=== PATIENT | female | born 1985 | race American Indian/Alaskan Native ===

== ENCOUNTER 2017-09-10 20:12 | Emergency (ER) | payer OTHER, MEDICAID ==
[2017-09-10] MEDS ORDERED: MOTRIN PO ONE (20:59)
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
[2017-09-11 00:52] VITALS: BP 118/59
--- NOTE | 2017-09-12 22:24 | XRay Report ---
FINAL REPORT PROCEDURE: XR SPINE LUMBOSACRAL 2-3V TECHNIQUE: Lumbar spine radiographs, including AP, lateral, and lumbosacral spot views. CPT 07969 HISTORY: lower back pain COMPARISON: No prior studies are available for comparison. FINDINGS: There is slight scoliosis of the lumbar spine with convexity to the left. There is normal lumbar lordosis. There are no fractures or malalignments. The disc spaces are normal. The facet joints are intact. Soft tissues are unremarkable. IMPRESSION: There is no acute bony abnormality..
--- NOTE | 2017-09-12 22:26 | XRay Report ---
FINAL REPORT PROCEDURE: XR SPINE CERVICAL 2-3V TECHNIQUE: Cervical spine radiographs, AP, lateral, and open-mouth odontoid views. CPT 87490 HISTORY: Neck pain COMPARISON: No prior studies are available for comparison. FINDINGS: Prevertebral soft tissues: Normal . Alignment: Normal . Vertebral body heights/Disk spaces: Normal . Fracture(s): None . Facets: Normal . Bone mineralization: Normal . IMPRESSION: Normal Examination
--- NOTE | 2017-09-13 00:09 | XRay Report ---
FINAL REPORT PROCEDURE: XR KNEE BILAT 1-2V TECHNIQUE: Bilateral knee radiographs, standing AP view. HISTORY: Bilateral Knee pain COMPARISON: No prior studies are available for comparison. FINDINGS: Fracture (s) and/or Dislocation(s): None . Joint space(s): Normal. Soft tissues: Normal. Bone mineralization: Normal. Foreign bodies: None. IMPRESSION: Normal Examination.
== END 2017-09-11 00:53 | disposition home or self-care (01) ==
LOC: ED 20:12
DX: M54.9 Dorsalgia, unspecified (principal); M54.2 Cervicalgia; F17.200 Nicotine dependence, unspecified, uncomplicated
CPT/HCPCS: 72040; 72100; 99283

== ENCOUNTER 2021-04-17 03:35 | Emergency (ER) | payer MEDICAID ==
--- NOTE | 2021-04-17 04:43 | Emergency Department Report ---
ED General Adult HPI - General Chief complaint: Wound/Laceration Stated complaint: LECERATION TO LEFT KNEE Time Seen by Provider: 04/17/21 04:28 Source: patient Mode of arrival: Ambulatory Limitations: No Limitations - History of Present Illness Initial comments: Patient 35-year-old female who presents with left anterior knee laceration status post slip and fall at home. Patient is amatory to baseline. Patient arrived via POV. States incident happened about 6 PM. There is no active bleeding, last tetanus is unknown. Pain described at 4/10 aching. - Related Data Previous Rx's Medication Instructions Recorded Last Taken Type Baclofen [Lioresal] 10 mg PO TID #12 tab 09/10/17 Unknown Rx Ibuprofen [Motrin 600 MG tab] 600 mg PO Q8H PRN #30 tablet 09/10/17 Unknown Rx Ibuprofen [Motrin 800 MG tab] 800 mg PO Q8HR PRN #30 tablet 04/17/21 Unknown Rx Allergies Allergy/AdvReac Type Severity Reaction Status Date / Time No Known Allergies Allergy Unverified 09/10/17 20:58 ED Review of Systems ROS: Stated complaint: LECERATION TO LEFT KNEE Other details as noted in HPI Constitutional: denies: chills, fever Eyes: denies: eye pain, eye discharge, vision change ENT: denies: ear pain, throat pain Respiratory: denies: cough, shortness of breath, wheezing Cardiovascular: denies: chest pain, palpitations Endocrine: no symptoms reported Gastrointestinal: denies: abdominal pain, nausea, diarrhea Genitourinary: denies: urgency, dysuria, discharge Musculoskeletal: other (Laceration left anterior knee). denies: back pain, joint swelling, arthralgia Skin: other (Laceration as above). denies: rash, lesions Neurological: denies: headache, weakness, paresthesias, vertigo Psychiatric: denies: anxiety, depression Hematological/Lymphatic: denies: easy bleeding, easy bruising ED Past Medical Hx - Past Medical History Previous Medical History?: No - Surgical History Past Surgical History?: Yes Additional Surgical History: Tubal Ligation - Social History Smoking Status: Current Every Day Smoker Substance Use Type: None - Medications Home Medications: Home Medications Medication Instructions Recorded Confirmed Last Taken Type Baclofen [Lioresal] 10 mg PO TID #12 tab 09/10/17 Unknown Rx Ibuprofen [Motrin 600 MG tab] 600 mg PO Q8H PRN #30 tablet 09/10/17 Unknown Rx Ibuprofen [Motrin 800 MG tab] 800 mg PO Q8HR PRN #30 tablet 04/17/21 Unknown Rx ED Physical Exam - General Limitations: No Limitations General appearance: alert, in no apparent distress - Head Head exam: Present: atraumatic, normocephalic - Eye Eye exam: Present: normal appearance, EOMI Pupils: Present: normal accommodation - ENT ENT exam: Present: mucous membranes moist - Neck Neck exam: Present: normal inspection, full ROM. Absent: tenderness - Respiratory Respiratory exam: Present: normal lung sounds bilaterally. Absent: respiratory distress, wheezes, stridor - Cardiovascular Cardiovascular Exam: Present: regular rate, normal rhythm, normal heart sounds. Absent: systolic murmur, diastolic murmur, rubs, gallop - GI/Abdominal GI/Abdominal exam: Present: soft, normal bowel sounds. Absent: distended, tenderness - Rectal Rectal exam: Present: deferred - Extremities Exam Extremities exam: Present: full ROM. Absent: joint swelling - Expanded Lower Extremity Exam Left Knee exam: Present: tenderness, laceration (Chronic anterior knee no nerve muscle or tendon damage, range of motion remains intact, strength is five five. Joint is stable), full knee extension. Absent: pain w/ pronation/supination, posterior draw sign, pain/laxity with valgus, pain/laxity with varus Lower Leg exam: Present: full ROM. Absent: tenderness Foot/Toe exam: Present: full ROM. Absent: tenderness Neuro vascular tendon exam: Absent: pulse deficit, motor deficit, sensory deficit, tendon deficit Gait: Positive: observed and normal - Back Exam Back exam: Present: normal inspection, full ROM. Absent: vertebral tenderness - Neurological Exam Neurological exam: Present: alert, oriented X3, CN II-XII intact, normal gait, reflexes normal. Absent: motor sensory deficit - Expanded Neurological Exam Expanded Patient oriented to: Present: person, place, time Speech: Present: fluid speech Motor strength exam: RUE: 5, LUE: 5, RLE: 5, LLE: 5 Best Eye Response (Parker): (4) open spontaneously Best Motor Response (Parker): (6) obeys commands Best Verbal Response (Marita): (5) oriented Parker Total: 15 - Psychiatric Psychiatric exam: Present: normal affect, normal mood - Skin Skin exam: Present: warm, dry, normal color, other (Laceration as above). Absent: rash ED Course Vital Signs 04/17/21 03:55 Temperature 98.2 F Pulse Rate 98 H Respiratory 16 Rate Blood Pressure 133/83 O2 Sat by Pulse 98 Oximetry - Laceration /Wound Repair Left Anterior Knee Wound Location: lower extremity Wound Length (cm): 2 Wound's Depth, Shape: superficial Wound Explored: no foreign body removed Irrigated w/ Saline (ccs): 60 Betadine Prep?: Yes Anesthesia: 1% Lidocaine Volume Anesthetic (ccs): 2 Wound Debrided: minimal Wound Repaired With: sutures, Dermabond Suture Size/Type: 3:0, proline Number of Sutures: 3 Layer Closure?: No Sterile Dressing Applied?: Yes Progress: Left anterior knee 1 inch laceration, cleaned with Betadine solution, anesthesia 1% lidocaine plain x2 cc, anesthesia is achieved. Wound irrigated with 60 cc sterile saline, closed with 3-0 Prolene times 3 sutures and Dermabond. Dressing applied range of motion remains intact there is no nerve muscle or tendon damage. Given post care instructions verbalized understanding of same. Bleeding is controlled patient tolerated procedure with minimal distress. ED Medical Decision Making - Medical Decision Making Left anterior knee laceration repair see procedure note. All bleeding is controlled. Patient tolerated procedure with minimal distress. There is no nerve muscle or tendon damage. Patient is amatory with steady gait to baseline per patient. Patient DC'd to home. Follow-up with primary care doctor in 2 days for wound check, in 7 to 10 days for suture removal. Patient will be DC'd home in stable condition via POV and family member at this time. Critical care attestation.: If time is entered above; I have spent that time in minutes in the direct care of this critically ill patient, excluding procedure time. ED Disposition Clinical Impression: Laceration of knee, left Qualifiers: Encounter type: initial encounter Qualified Code(s): S81.012A - Laceration wit hout foreign body, left knee, initial encounter Disposition: HOME / SELF CARE / HOMELESS Is pt being admited?: No Does the pt Need Aspirin: No Condition: Stable Instructions: Laceration Care, Adult, Sutures, [place], or Adhesive Wound Closure, [id number] Additional Instructions: Take all medications as prescribed, follow-up with your doctor in 2 days for wound check. 7 to 10 days for suture removal. Turn to emergency room if symptoms worsen. Prescriptions: Ibuprofen [Motrin 800 MG tab] 800 mg PO Q8HR PRN #30 tablet PRN Reason: pain Referrals: MONCHO BERTRAND MD [Staff Physician] - 3-5 Days Forms: Work/School Release Form(ED) Time of Disposition: 04:47
[2021-04-17] MEDS ORDERED: TETANUS,DIPH,PERTUSS(ACELL) VACCINE 0.5 ML SYRINGE IM ONE (05:09)
[2021-04-17 05:35] VITALS: BP 104/66
== END 2021-04-17 05:05 | disposition home or self-care (01) ==
LOC: ED 03:35
DX: S81.012A Laceration without foreign body, left knee, initial encounter (principal); F17.200 Nicotine dependence, unspecified, uncomplicated; W01.0XXA Fall on same level from slipping, tripping and stumbling without subsequent striking against object, initial encounter; Y93.89 Activity, other specified; Y92.89 Other specified places as the place of occurrence of the external cause; Y99.8 Other external cause status
CPT/HCPCS: 90471; 90715; 99281

== ENCOUNTER 2021-04-28 07:49 | Emergency (ER) | payer MEDICAID ==
[2021-04-28 07:55] VITALS: BP 106/67
--- NOTE | 2021-04-28 08:08 | Emergency Department Report ---
ED General Adult HPI - General Chief complaint: Laceration/Recheck/Suture Stated complaint: REMOVE STITCHES Time Seen by Provider: 04/28/21 07:57 Source: patient Mode of arrival: Ambulatory Limitations: No Limitations - History of Present Illness Initial comments: 35-year-old -K[place] female patient presents for suture removal today. Sutures were placed here in the ED on 04/17/2021 in the left knee. She denies any issues including swelling, pain, difficulty moving her knee, fever/chills/sweats, or wound drainage. Patient states she is feeling well. Severity scale (0 -10): 0 - Related Data Previous Rx's Medication Instructions Recorded Last Taken Type Baclofen [Lioresal] 10 mg PO TID #12 tab 09/10/17 Unknown Rx Ibuprofen [Motrin 600 MG tab] 600 mg PO Q8H PRN #30 tablet 09/10/17 Unknown Rx Ibuprofen [Motrin 800 MG tab] 800 mg PO Q8HR PRN #30 tablet 04/17/21 Unknown Rx Allergies Allergy/AdvReac Type Severity Reaction Status Date / Time No Known Allergies Allergy Unverified 09/10/17 20:58 ED Review of Systems ROS: Stated complaint: REMOVE STITCHES Other details as noted in HPI Constitutional: denies: diaphoresis, fever, malaise Musculoskeletal: denies: joint swelling, arthralgia Skin: denies: change in color ED Past Medical Hx - Surgical History Additional Surgical History: Tubal Ligation - Social History Smoking Status: Current Every Day Smoker Substance Use Type: None - Medications Home Medications: Home Medications Medication Instructions Recorded Confirmed Last Taken Type Baclofen [Lioresal] 10 mg PO TID #12 tab 09/10/17 Unknown Rx Ibuprofen [Motrin 600 MG tab] 600 mg PO Q8H PRN #30 tablet 09/10/17 Unknown Rx Ibuprofen [Motrin 800 MG tab] 800 mg PO Q8HR PRN #30 tablet 04/17/21 Unknown Rx ED Physical Exam - General Limitations: No Limitations General appearance: alert, in no apparent distress - Head Head exam: Present: atraumatic, normocephalic - Eye Eye exam: Present: normal appearance - Respiratory Respiratory exam: Absent: respiratory distress - Cardiovascular Cardiovascular Exam: Present: regular rate - Neurological Exam Neurological exam: Present: normal gait, other (Healing laceration noted to left knee without dehiscence, purulent drainage, erythema, redness, or swelling; patient has full range of motion of the knee) - Psychiatric Psychiatric exam: Present: normal affect, normal mood - Skin Skin exam: Present: warm, dry, intact, normal color. Absent: rash ED Course Vital Signs 04/28/21 04/28/21 07:55 08:11 Temperature 97.9 F Pulse Rate 109 H 88 Respiratory 14 16 Rate Blood Pressure 106/67 [Right] O2 Sat by Pulse 97 100 Oximetry - Procedure Description Procedures done: 3 simple sutures removed from left knee. Patient tolerated procedure well without any immediate complications. No bleeding or wound dehiscence noted. ED Medical Decision Making - Medical Decision Making 35-year-old -[place] female patient presents for suture removal today. Sutures were placed here in the ED on 04/17/2021 in the left knee. She denies any issues including swelling, pain, difficulty moving her knee, fever/chills/sweats, or wound drainage. Patient states she is feeling well. Sutures removed. Patient tolerated procedure well. Discussed strict return precautions in detail patient verbalizes understanding. Critical care attestation.: If time is entered above; I have spent that time in minutes in the direct care of this critically ill patient, excluding procedure time. ED Disposition Clinical Impression: Visit for suture removal Disposition: 01 HOME / SELF CARE / HOMELESS Is pt being admited?: No Condition: Stable Instructions: Wound Closure Removal, Care After Referrals: PRIMARY CARE, [Primary Care Provider] - as needed
== END 2021-04-28 08:15 | disposition home or self-care (01) ==
LOC: ED 07:49
DX: S81.012D Laceration without foreign body, left knee, subsequent encounter (principal); F17.200 Nicotine dependence, unspecified, uncomplicated; Z98.51 Tubal ligation status; X58.XXXD Exposure to other specified factors, subsequent encounter
CPT/HCPCS: 99282